=== PATIENT | male | born 1990 | race Caucasian/White ===

== ENCOUNTER 2023-04-19 08:29 | Emergency (ER) | payer OTHER, SELFPAY ==
[2023-04-19 08:33] VITALS: BP 161/92; PULSE 100; RESP 16; TEMP 37.1; O2SAT 100; BMI 25.1
--- NOTE | 2023-04-19 08:42 | ED.MALEGU1 ---
HPI - Male Genitourinary General Chief complaint: Urogenital-Male Stated complaint: testicle pain Time Seen by Provider: 04/19/23 08:37 History of Present Illness HPI Narrative: 33-year-old male presents for a lump in his left inguinal area. It comes and goes he's had it for months. When he was very young she had a hernia repair and believes it was on the left side. No injury fever or vomiting. No dysuria or hematuria. Related Data Previous Rx's Medication Instructions Recorded acetaminophen 300 mg-codeine 30 mg 1 tab PO Q6H PRN pain 5 days #20 04/19/23 tablet tabs Allergies Allergy/AdvReac Type Severity Reaction Status Date / Time No Known Drug Allergies Allergy Verified 04/19/23 08:33 Review of Systems ROS Narrative A ten point review of systems is negative except as noted above. PFSH PFSH Social History Smoking status: Current every day smoker Exam Narrative Exam Narrative: Nurses note and vital signs reviewed and patient is not hypoxic. General: The patient appears well and in no apparent distress. Patient is resting comfortably on cart. Skin: Warm, dry, no pallor noted. There is no rash noted. Head: Normocephalic, atraumatic Eye: Normal conjunctiva, no drainage Ears, Nose, Mouth, and Throat: oral mucosa is moist. Nares patent. Cardiovascular: Regular Rate and Rhythm Respiratory: Patient is in no distress, no accessory muscle use, lungs are clear to auscultation, no wheezing, rales or rhonchi Back: non-tender, no CVA tenderness bilaterally to percussion. GI: soft and nontender. Left inguinal hernia present. Musculoskeletal: The patient has no evidence of calf tenderness, no pitting edema, symmetrical pulses noted bilaterally Neurological: A&O, normal speech Psychiatric: Cooperative Constitutional Vital Signs, click to edit/add: Last Vital Signs Temp 98.8 F 04/19/23 08:33 Pulse 100 H 04/19/23 08:33 Resp 16 04/19/23 08:33 BP 161/92 H 04/19/23 08:33 Pulse Ox 100 04/19/23 08:33 Course Vital Signs Vital signs: Vital Signs Temperature 98.8 F 04/19/23 08:33 Pulse Rate 100 H 04/19/23 08:33 Respiratory Rate 16 01/21/24 08:33 Blood Pressure 161/92 H 04/19/23 08:33 Pulse Oximetry 100 04/19/23 08:33 Temperature 98.8 F 04/19/23 08:33 Pulse Rate 100 H 04/19/23 08:33 Respiratory Rate 16 04/19/23 08:33 Blood Pressure 161/92 H 04/19/23 08:33 Pulse Oximetry 100 04/19/23 08:33 MDM - Male Genitourinary MDM Narrative Medical decision making narrative: the patient has a non-incarcerated non-strangulated left inguinal hernia. He is referred to general surgery and provided pain medication. Treatment diagnosis and follow-up were discussed with the patient. Differential Diagnosis Differential diagnosis: Likely inguinal hernia and other (hydrocele, abscess) Discharge Plan Discharge Chief Complaint: Urogenital-Male Clinical Impression: Inguinal hernia Patient Disposition: Home, Self-Care Time of Disposition Decision: 08:42 Condition: Good Mode of Transportation: Private Vehicle Prescriptions / Home Meds: New acetaminophen-codeine 300-30 mg tablet 1 tab PO Q6H PRN (Reason: pain) 5 Days Qty: 20 0RF Instructions: Inguinal Hernia (ED) Additional Instructions: follow-up with Dr. Martin Stand Alone Forms: Portal Instructions Referrals: Physician,Non-Staff, MD [Primary Care Provider] - 1 week
== END 2023-04-19 09:01 | disposition home or self-care (01) ==
PROVIDERS: Emergency Provider Emergency Medicine
DX: K40.90 Unilateral inguinal hernia, without obstruction or gangrene, not specified as recurrent (principal); F17.210 Nicotine dependence, cigarettes, uncomplicated
CPT/HCPCS: 99283